=== PATIENT | female | born 1930 | race Caucasian/White ===

== ENCOUNTER 2017-04-17 15:08 | Emergency (ER) | payer MEDICARE, BC, OTHER ==
[~2017-04-17] VITALS: Ht 162.6 cm; Wt 50.8 kg
[~2017-04-17 15:08] MED LIST: ADULT LOW DOSE81 MG; APAP650; ASPERCREME1 EACH; ASPIR 8181 MG; ATORVASTATIN CA40 MG PO; AVAPRO 150 MG150 M1; AVAPRO300 MG PO; CALCIUM; CEROVITE SENIO1 EACH; CLARITIN10 MG; COREG6.25 MG PO; DYAZIDE 37.5-21 EACH; ELIQUIS2.5 MG; HYDRALAZINE 2525 MG PO; HYDRALAZINE 5050 M1; K-DUR 20 MEQ T20 MEQ PO; KLOR-CON20 ME1 PO; LASIX 40 MG TAB40 M2; LEVOTHYROXINE 0.1 MG PO; LEXAPRO 10 MG T10 M1; LOPRESSOR 50 MG50 M1; MAXZIDE-25 MG1 EACH PO; MILK OF MA2400 MG/10; NASONEX17 GM; OMEPRAZOLE40 MG PO; POTASSIUM20; PRILOSEC 20 MG20 MG; SYNTHROID100 MCG; SYSTANE 0.3-0.1 EACH; TRAZODONE HCL50 MG; VITAMIN D31000 UNI2; VYTORIN 10-401 EACH
[2017-04-17] MEDS ORDERED: ELIQUIS2.5 MG PO (15:25)
[2017-04-17] MEDS ORDERED: CALCIUM 600 +1 EAC1 PO (15:26)
[2017-04-17] MEDS ORDERED: SYNTHROID50 MCG PO (15:30)
[2017-04-17 17:23] VITALS: BP 124/54
== END 2017-04-17 17:26 | disposition home or self-care (01) ==
LOC: M.ERS 15:08
DX: Z04.3 Encounter for examination and observation following other accident (principal); I10 Essential (primary) hypertension; E03.9 Hypothyroidism, unspecified; I48.91 Unspecified atrial fibrillation; E78.00 Pure hypercholesterolemia, unspecified; K21.9 Gastro-esophageal reflux disease without esophagitis; Z86.73 Personal history of transient ischemic attack (TIA), and cerebral infarction without residual deficits; Z88.0 Allergy status to penicillin; Z88.2 Allergy status to sulfonamides; Z88.1 Allergy status to other antibiotic agents; W17.89XA Other fall from one level to another, initial encounter; Y93.89 Activity, other specified; Y92.038 Other place in apartment as the place of occurrence of the external cause; Y99.8 Other external cause status